=== PATIENT | male | born 1995 | race Caucasian/White ===

== ENCOUNTER 2017-06-03 23:26 | Emergency (ER) | payer OTHER ==
[~2017-06-03] VITALS: Ht 175.3 cm; Wt 76.0 kg
[2017-06-03 23:27] VITALS: BP 184/87; PULSE 95; RESP 24; TEMP 98.4; O2SAT 100
[2017-06-04 00:15] VITALS: BP 148/82; PULSE 79; RESP 18; TEMP 98.5; O2SAT 100
[2017-06-04] MEDS ORDERED: VIST50CA PO (00:28)
[2017-06-04] MEDS ORDERED: LORazepam 1 MG TAB PO ONE (00:30)
--- NOTE | 2017-06-04 00:34 | PD ---
HPI Chief Complaint: Respiratory Symptoms Time Seen by Provider: 00:09 Travel History International Travel<30 days: No Contact w/Intl Traveler<30days: No Traveled to known affect area: No History of Present Illness HPI 22-year-old white male presents to emergency Department with complaints of shortness of breath. He states that he was in his normal state of health earlier today. He had gone out to dinner and had a hamburger and nepali fries. He had gone out to watch a movie this evening. When he was laying down in the chair he noticed some difficulty breathing air through his nose. He states that he soon then developed tightness in his chest and shortness of breath. He states that he felt he could not catch his breath or take a deep enough breath. He felt very tremulous. He has some tingling in his hands and feet. His symptoms have somewhat improved since coming here but still feels anxious. Patient has had a history of an anxiety panic attack in the past and that this feels similar. He denies any palpitations. No syncope. Denies any connective tissue disorders. No heart disease. PFSH Past Medical History Medical History: Denies Significant Hx Tetanus Vaccination: < 5 Years Influenza Vaccination: No Past Surgical History Surgical History: No Previous Surgery Social History Alcohol Use: No Tobacco Use: No Substance Use: No Allergies-Medications (Allergen,Severity, Reaction): Coded Allergies: No Known Drug Allergies (Verified Allergy, Unknown, 06/04/17) Reported Meds & Prescriptions Reported Meds & Active Scripts Active Vistaril (Hydroxyzine Pamoate) 50 Mg Cap 50 Mg PO QID PRN 10 Days Review of Systems Except as stated in HPI: all other systems reviewed are Neg Physical Exam Narrative GENERAL: Well-developed, well-nourished in no apparent distress. Nontoxic appearing. Patient's accompanied by his father. He appears very anxious. HEAD: Normocephalic, atraumatic. EYES: Pupils equal round and reactive. Extraocular motions intact. No scleral icterus. No injection or drainage. ENT: Nose clear. Throat without erythema, tonsillar hypertrophy or exudate. Uvula midline. Airway patent. NECK: Trachea midline. Supple, nontender, moves head freely. No central bony tenderness or spasm. CARDIOVASCULAR: Regular rate and rhythm without murmurs, gallops, or rubs. RESPIRATORY: Clear to auscultation. Breath sounds equal bilaterally. No wheezes , rales, or rhonchi. GASTROINTESTINAL: Abdomen soft, non-tender, nondistended. No hepato-splenomegaly , or palpable masses. No guarding. EXTREMITIES: No clubbing, cyanosis, or edema. No joint tenderness. BACK: Nontender without deformity. No flank tenderness. NEUROLOGICAL: Awake, alert and oriented x 3 .Cranial nerves grossly intact. Motor and sensory grossly within normal limits. Normal speech. Data Data Last Documented VS Vital Signs Date Time Temp Pulse Resp B/P (MAP) Pulse Ox O2 Delivery O2 Flow Rate FiO2 06/04/17 00:15 98.5 79 18 148/82 (104) 100 Room Air Orders Orders Lorazepam (Ativan) (06/04/17 00:30) Ed Discharge Order (06/04/17 00:28) [facility] Medical Decision Making Medical Screen Exam Complete: Yes Emergency Medical Condition: Yes Medical Record Reviewed: Yes Differential Diagnosis Differential diagnosis: Electrolyte abnormality, anxiety, URI, pleurisy Narrative Course Patient is resting comfortable. He does seem anxious. He is given 1 mg of Ativan by mouth. I explained to the patient and his father that he is having an anxiety issue and that no imaging or EKG testing is indicated. Both verbally understand and agree with the treatment plan and follow-up. This is acute anxiety attack Diagnosis Primary Impression: Acute anxiety Patient Instructions: General Instructions Additional Instructions: Rest. Avoid any stressors. No stimulants. Vistaril for anxiety. Follow-up with a medical doctor in one week. Med/Other Pt SpecificInfo: Prescription(s) given Scripts Hydroxyzine Pamoate (Vistaril) 50 Mg Cap 50 MG PO QID Y for ANXIETY for 10 Days, CAP 0 Refills Prov: Brian Mercado MD 06/04/17 Disposition: 01 DISCHARGE HOME Condition: Stable Ryan Sotelo Jun 04, 2017 00:34
== END 2017-06-04 01:06 | disposition home or self-care (01) ==
LOC: NEPD 23:26
DX: F41.0 Panic disorder [episodic paroxysmal anxiety] (principal)
CPT/HCPCS: 99283